=== PATIENT | female | born 1995 | race Caucasian/White ===

== ENCOUNTER 2017-08-09 10:40 | Inpatient (IN) | payer OTHER ==
[~2017-08-09] VITALS: Ht 157.5 cm; Wt 68.0 kg
[2017-08-09] VITALS (9 sets, daily range): BP systolic 94–115; BP diastolic 51–60
[2017-08-09] MEDS ORDERED: PRENTAB9 PO (11:57)
[2017-08-09] MEDS ORDERED: TUMS500C PO (11:57)
[2017-08-09] MEDS ORDERED: miSOPROStol 50 MCG 1/2 TAB (S0191) PO ONE (12:15)
[2017-08-09 12:32] LABS: MEAN CORPUSCULAR HEMOGLOBIN 26.6 pg (27.0-33.0); MEAN CORPUSCULAR HGB CONC 32.3 g/dl (32.0-36.5); MEAN CORPUSCULAR VOLUME 82.5 fl (80.0-96.0); PLATELET COUNT, AUTOMATED 234 10^3/uL (150-450); RED CELL DISTRIBUTION WIDTH 14.3 % (11.5-14.5); WHITE BLOOD COUNT 9.4 10^3/uL (4.0-10.0)
[2017-08-09] MEDS ORDERED: TERBUTALINE SULFATE 1 MG/ML VIAL (J3105) As Ordered ONE (15:05)
[2017-08-09] MEDS ORDERED: LACTATED RINGER'S 1000 ML IV STA (15:45)
[2017-08-09] MEDS: LR 1,000 ML IV SCH (15:54)
[2017-08-09] MEDS ORDERED: PROMETHAZINE INJ 25 MG/ML VIAL (J2550) IM ONE (22:30)
[2017-08-09] MEDS ORDERED: OXYTOCIN DRIP 30 UNITS in APPROPRIATE DILUENT 1 EA IV SCH (22:30)
[2017-08-09] MEDS ORDERED: NALBUPHINE HCL 10 MG/ML AMP (J2300) IV ONE (22:30)
[2017-08-10] VITALS (10 sets, daily range): BP systolic 108–138; BP diastolic 54–71
[2017-08-10] MEDS: LR 1,000 ML IV SCH ×4 (12:35→23:45)
[2017-08-10] MEDS ORDERED: FENTANYL 2MCG/ML ROPIVACAINE 0.2% IN 0.9% NACL 200ML IVBAG As Ordered ONE (13:30)
[2017-08-10] MEDS ORDERED: LACTATED RINGER'S 1000 ML IV PRN (14:45)
[2017-08-10] MEDS ORDERED: EPIDURAL COMMENT XX SCH (14:45)
[2017-08-10] MEDS ORDERED: REFRIGERATOR IV KEYS XX PRN (14:45)
[2017-08-10] MEDS ORDERED: ePHEDrine SULFATE 25 MG/5 ML(5MG/ML) SYRINGE IV PRN (14:45)
[2017-08-10] MEDS ORDERED: ONDANSETRON 4MG/2ML VIAL (J2405) IV PRN ×2 (14:45→19:00)
[2017-08-10] MEDS ORDERED: diphenhydrAMINE INJ 50MG/ML VIAL (J1200) IV PRN (14:45)
[2017-08-10] MEDS ORDERED: FENTANYL/ROPIVACAINE/NACL BAG 200 ML EPIDURAL SCH (14:45)
[2017-08-10] MEDS ORDERED: NALOXONE INJ 0.4 MG/1 ML VIAL (J2310) IV PRN (14:45)
[2017-08-10] MEDS ORDERED: EPIDURAL/PCA KEYS XX PRN (14:45)
[2017-08-10] MEDS ORDERED: MEASLES,MUMPS,RUBELLA VACCINE INJ (MMR-II) (90707) SC SCH (19:00)
[2017-08-10] MEDS ORDERED: METOCLOPRAMIDE INJ 10MG/2ML VIAL (J2765) IV PRN (19:00)
[2017-08-10] MEDS ORDERED: LIDOCAINE 1% SDV INJ 30 ML VIAL SC SCH (19:00)
[2017-08-10] MEDS ORDERED: DOCUSATE SODIUM 100 MG CAP PO PRN (19:00)
[2017-08-10] MEDS ORDERED: RHOGAM 300 MCG (1500 IU) INJ (J2790) IM SCH (19:00)
[2017-08-10] MEDS ORDERED: ACETAMINOPHEN 500 MG TAB PO PRN (19:00)
[2017-08-10] MEDS ORDERED: METHYLERGONOVINE MALEATE 0.2 MG TAB PO PRN (19:00)
[2017-08-10] MEDS ORDERED: DIBUCAINE 1% OINTMENT 30GM TOP PRN (19:00)
[2017-08-10] MEDS ORDERED: MOM 30ML SUSPENSION UDC PO PRN (19:00)
[2017-08-10] MEDS ORDERED: LIDOCAINE 1% MDV INJ 50 ML VIAL As Ordered ONE (19:32)
[2017-08-10] MEDS: IBUPROFEN 800 MG TAB PO PRN (19:35)
[2017-08-11 05:32] VITALS: BP 111/64
[2017-08-11] MEDS: PRENATAL VITAMINS CHEWABLE TABLET PO SCH (07:55)
[2017-08-11] MEDS: IBUPROFEN 800 MG TAB PO PRN ×2 (13:49→22:15)
[2017-08-11 18:06] VITALS: BP 117/58
[2017-08-12 06:00] VITALS: BP 113/56
[2017-08-12] MEDS: PRENATAL VITAMINS CHEWABLE TABLET PO SCH (07:55)
[2017-08-12] MEDS ORDERED: INFLUENZA QUADRIVALENT PF VACCINE 0.5ML SYRINGE (90686) IM ONE (09:00)
[2017-08-12] MEDS ORDERED: ACET50TA PO (09:35)
[2017-08-12] MEDS ORDERED: IBUP-1114 PO (09:36)
[2017-08-12] MEDS ORDERED: COLA100C5 PO (09:38)
[2017-08-12] MEDS ORDERED: DIBU10OI TOP (09:38)
--- NOTE | 2017-08-12 19:34 | DSES ---
DATE OF ADMISSION: 08/09/2017 DATE OF DISCHARGE: 08/12/2017 This lady is a 22-year-old 1, now para 1 admitted for induction of labor at 41 weeks of gestation. She delivered spontaneously a live female weighing 8 pounds 5 ounces, 3770 grams, scores of 8 and 9 at 1 and 5 minutes, respectively. She had a little labial laceration oversewn with #3-0 Vicryl. She has no risk factors. On discharge, we discussed phlebitis, cystitis, mastitis, endometritis and cellulitis, diet, exercise, pain management, perineal, breast and wound care. She was given her medications at discharge and followup with [facility] in 6-week checkup. Hemoglobin 9.1, hematocrit 28.2 and platelets were 234. VITAL SIGNS: On discharge, blood pressure 117/58, respirations 16, pulse 69, temperature 97.8. The rest of the examination is unremarkable. She is normocephalic, atraumatic. Neck: Full range of motion. Pupils equal and reactive to light. Distal pulses are symmetric. No evidence of DVT, PE or superficial phlebitis. Chest is clear bilaterally to bases. No wheezes or rhonchi. No CVA tenderness. Uterus two below. Lochia is moderate. Four quadrant bowel sounds are noted. Perineum is intact. She has no rashes, lesions or pruritus. No arthralgia or myalgia. No complaints of cough, wheezes, shortness of breath or dyspnea on exertion. No chest pain. Not bleeding. Neuro complete. No incontinence, urgency or frequency. No nausea, vomiting, diarrhea or constipation. No diabetic issues. No heat or cold issues. No [employer]IST issues. Past medical, surgical, family history are unremarkable. She does not smoke, drink, abuse drugs. She is . There is no domestic violence. In summary, we have a late term gestation, induction of labor, delivered a live female infant. Discharged to followup in the office in 6 weeks' time. All questions were answered.
== END 2017-08-12 11:30 | disposition home or self-care (01) | DRG 775 ==
LOC: M LDI 10:40 → M OBS 08-10 21:20
PROVIDERS: ADMIT Obstetrics & Gynecology; ATTEND Student in an Organized Health Care Education/Training Program
PROC: 3E0P7GC Introduction of Other Therapeutic Substance into Female Reproductive, Via Natural or Artificial Opening (ICD-10-PCS; 2017-08-09)
PROC: 10E0XZZ Delivery of Products of Conception, External Approach (ICD-10-PCS; principal; 2017-08-10)
PROC: 0HQ9XZZ Repair Perineum Skin, External Approach (ICD-10-PCS; 2017-08-10)
DX: O48.0 Post-term pregnancy (principal); O99.02 Anemia complicating childbirth; Z3A.41 41 weeks gestation of pregnancy; D64.9 Anemia, unspecified; O70.0 First degree perineal laceration during delivery; Z37.0 Single live birth